=== PATIENT | female | born 1945 | race Caucasian/White ===

== ENCOUNTER → 2019-11-07 | Outpatient (CLI) | payer BC, MEDICARE ==
--- NOTE | 2019-11-10 16:42 | RAD ---
BILATERAL SCREENING MAMMOGRAM, 3-D History: Routine screening. Comparison: 10/22/2017, 08/21/2014. Technique: MLO and CC digital tomosynthesis (3D) images obtained. Radiologist reviewed these images on dedicated workstation. Findings: Breast Tissue Density B : There are scattered areas of fibroglandular density. There are no dominant masses, suspicious microcalcifications, or architectural distortion. IMPRESSION: No mammographic evidence of malignancy. Recommend routine screening. BI-RADS category 1: Negative. The images were reviewed with computer-aided detection. Patient information is entered into reminder system with a target due date for the next screening mammogram. Mammography is the most sensitive method for finding small breast cancers, but it does not detect them all and is not a substitute for careful clinical examination. A negative mammogram does not negate a clinically suspicious finding and should not result in delay in biopsying a clinically suspicious abnormality. "Our facility is accredited by the [employer] Mammography Program." Electronically signed by: Wesley Simpson MD (11/10/2019 4:39 PM) [email or web address]
== END ==
LOC: MAMMO 08:34
PROVIDERS: ATTEND Specialist
DX: Z12.31 Encounter for screening mammogram for malignant neoplasm of breast (principal)
CPT/HCPCS: 77063; 77067

== ENCOUNTER → 2020-01-26 | Outpatient (CLI) | payer BC, MEDICARE ==
--- NOTE | 2020-01-26 17:13 | RAD ---
XR KNEE _3 VIEWS_LT 01/26/2020 10:52 AM INDICATION: Chronic knee pain, worsening COMPARISON: None available. TECHNIQUE: 3 views of the left knee are provided. FINDINGS/ IMPRESSION: There may be a subtle knee joint effusion. There is no acute fracture or dislocation. Joint spaces ar e maintained. Bone mineralization is within normal limits. Regional soft tissues are within normal li mits. There is no soft tissue gas or osseous erosion. No radiopaque foreign body. Electronically signed by: Donna Ding MD (01/26/2020 5:11 PM) KALE
== END ==
LOC: DXRAD 10:38
PROVIDERS: ATTEND Physician Assistant
DX: M25.462 Effusion, left knee (principal); G89.29 Other chronic pain
CPT/HCPCS: 73562

== ENCOUNTER → 2020-05-13 | Outpatient (CLI) | payer BC, MEDICARE ==
--- NOTE | 2020-05-14 09:12 | RAD ---
PQRS Compliance Statement: One or more of the following individualized dose reduction techniques were utilized for this examinat ion: 1. Automated exposure control 2. Adjustment of the mA and/or kV according to patient size 3. Use of iterative reconstruction technique CT ORBITS/SELLA WITHOUT CONTRAST 05/13/2020 3:32 PM Indication: Exophthalmos COMPARISON: None available. TECHNIQUE: Multiple axial CT images of the orbits were obtained without intravenous contrast. Coronal sagittal reformats are provided. FINDINGS: Globes are spherical and contour. There is proptosis of the left orbit with the posterior margin the globe at the level of the interzygomatic line. Bilateral lens replacement is noted. There is enlargem ent of the inferior medial, superior and lateral rectus muscles of the left orbit. Minimal fat strand ing identified within the intraconal fat. Right orbit is normal in appearance. Mild mucosal thickening of the maxillary sinuses, posterior left ethmoid air cells and right sphenoid sinus. Mastoid air cells are well aerated. Skull base is intact. Versus portions of the posterior fo ssa and brain parenchyma appear normal. IMPRESSION: 1. Left-sided exophthalmus with enlargement of the extraocular muscles suspicious for thyroid ophthal mopathy. Correlate with any pain as consideration may be given for pseudotumor. Diffuse involvement o f the extraocular muscles is atypical for neoplastic processes. IgG4 related disease could have simil ar appearance. Electronically signed by: Donna Ding MD (05/14/2020 9:10 AM) [id number]
== END ==
LOC: CT 15:25
PROVIDERS: ATTEND Ophthalmology Ophthalmic Plastic and Reconstructive Surgery
DX: H53.2 Diplopia (principal); Q15.8 Other specified congenital malformations of eye
CPT/HCPCS: 70480

== ENCOUNTER → 2020-11-07 | Outpatient (CLI) | payer BC, MEDICARE ==
--- NOTE | 2020-11-07 15:45 | RAD ---
MG BILAT SCREEN+PARISH 11/07/2020 2:29 PM INDICATION: Asymptomatic screening mammogram. COMPARISON: 11/07/2019, 10/22/2017 TECHNIQUE: 3D tomosynthesis was performed in CC and MLO projections. 2D views were obtained from the 3D data. CAD was utilized as needed. FINDINGS: Breast density: Category B: There are scattered areas of fibroglandular density. Right breast: Focal asymmetry in the retroareolar right breast appears new. Further evaluation with s pot compression CC and MLO views of the right breast in the retroareolar region as well as possible u ltrasound is recommended. Left breast: There are no suspicious microcalcifications, masses or areas of architectural distortion . IMPRESSION: 1. Incomplete right mammogram. Additional imaging is recommended. 2. Negative left mammogram. BI-RADS category: 0; Incomplete Recommendations: Recommend additional imaging for which the patient will need to be called back. Electronically signed by: Donna Ding MD (11/07/2020 3:42 PM) [id number]
== END ==
LOC: MAMMO 14:21
PROVIDERS: ATTEND Specialist
DX: Z12.31 Encounter for screening mammogram for malignant neoplasm of breast (principal)
CPT/HCPCS: 77063; 77067

== ENCOUNTER → 2020-12-02 | Outpatient (CLI) | payer BC, MEDICARE ==
--- NOTE | 2020-12-02 15:14 | RAD ---
PROCEDURE: US BREAST RT, MG DIAGNOSTICUNILAT MAMMO HISTORY: The patient is 75 years old and is seen for Reason: CALLBACK ABNORMAL MAMM RT BREAST / Spl. Instructions: / History: . COMPARISON: November 07, 2020 TECHNIQUE: Right breast spot compression views and ML view. Ultrasound was also performed of the righ t breast. DENSITY: There are scattered fibroglandular densities. FINDINGS: Mammogram: Previously seen now focal asymmetry within the right retroareolar breast is less apparent on spot compression views. Scattered benign-appearing calcifications. ULTRASOUND: Small cystic lesion within the right breast retroareolar measures 0.3 x 0.4 cm correspond ing with mammographic finding. IMPRESSION: 1. Small cystic lesion within the right breast corresponding with mammographic finding. Recommend re turn to annual screening. Recommend annual screening mammograms per [employer] [place] [employer] guidelines. She will be due in one year. BI-RADS category 2 Benign Patient entered into a reminder system for annual screening mammogram. Electronically signed by: Brodie Kaur DO (12/02/2020 3:12 PM) [id number]
== END ==
LOC: MAMMO 13:59
PROVIDERS: ATTEND Specialist
DX: N60.11 Diffuse cystic mastopathy of right breast (principal); R92.2 Inconclusive mammogram
CPT/HCPCS: 76641; 77065

== ENCOUNTER 2020-12-20 11:47 | Emergency (ER) | payer BC, MEDICARE ==
[~2020-12-20] VITALS: Ht 165.1 cm; Wt 59.0 kg
--- NOTE | 2020-12-20 13:04 | EKG ---
[address] [address] Test Date: 2020-12-20 Test Time: 12:36:44 Pat Name: REBECCA HART Department: Room: Gender: F Intensive Care Nurse: BRAYDEN : 1945 Requested By: LAURA ANN Order Number: [id number] Reading MD: Jose Luis Joy Measurements Intervals [place] Rate: 66 P: ID: QRS: 58 QRSD: 94 T: 34 QT: 436 QTc: 459 Interpretive Statements ATRIAL FIBRILLATION RI6.02 No previous ECG available for comparison Electronically Signed On 12-23-2020 9:37:30 EGGS INSPECTOR by Jose Luis Joy
[2020-12-20 13:10] LABS: BASO % 1 % (0-3); EOS % 0 % (0-3); HEMATOCRIT 40.2 % (36.0-47.0); HEMOGLOBIN 13.8 g/dL (12.0-15.5); LYMPH # 1.5 x10^3/uL (1.0-4.8); LYMPH % 21 % (24-48); MEAN CORPUSCULAR HEMOGLOBIN 31 pg (25-35); MEAN CORPUSCULAR HGB CONC 34 g/dL (31-37); MEAN CORPUSCULAR VOLUME 91 fL (79-100); MONO # 0.7 x10^3/uL (0.0-1.1); MONO % 10 % (0-9); NEUT # 4.9 x10^3uL (1.8-7.7); NEUT % 69 % (31-73); PLATELET COUNT 247 x10^3/uL (140-400); RED BLOOD COUNT 4.44 x10^6/uL (3.50-5.40); RED CELL DISTRIBUTION WIDTH 12.7 % (11.5-14.5); WHITE BLOOD COUNT 7.2 x10^3/uL (4.0-11.0)
--- NOTE | 2020-12-20 13:11 | RAD ---
EXAM: CT head without contrast INDICATION: Memory problems COMPARISON: None TECHNIQUE: Axial CT imaging through the head without intravenous contrast. One or more of the following individualized dose reduction techniques were utilized for this examinat ion: 1. Automated exposure control 2. Adjustment of the mA and/or kV according to patient size 3. Use of iterative reconstruction technique. FINDINGS: Ventricles and sulci are moderately enlarged. There is a cavus septum pellucidum. There is moderate c onfluent deep white matter hypoattenuation in the frontal and parietal lobes, greater on the right. N o intracranial hemorrhage or acute infarct. Basal cisterns are clear. No acute osseous abnormality. P aranasal sinuses and mastoid air cells are clear. Globes and orbits are intact. IMPRESSION: 1. Moderate cerebral volume loss. 2. Moderate white matter disease, nonspecific but likely related to chronic microvascular ischemia. Electronically signed by: Yahaira Berrios MD (12/20/2020 1:08 PM) [id number]
[2020-12-20 13:17] LABS: CALCIUM 9.8 mg/dL (8.5-10.1); GFR 53.8; POTASSIUM 3.7 mmol/L (3.5-5.1)
[2020-12-20 13:17] LABS: BACTERIA,URINE FEW /HPF (0-FEW); BILIRUBIN,URINE NEG (NEG); CLARITY,URINE CLEAR; COLOR,URINE YELLOW; GLUCOSE,URINE NEG (NEG); NITRITE,URINE NEG (NEG); RBC,URINE OCC /HPF (0-2); SQUAMOUS EPITHELIAL CELL,UR FEW /LPF; UROBILINOGEN,URINE 0.2 mg/dL (0.2 mg/dL); WBC,URINE OCC /HPF (0-4)
[2020-12-20 13:23] LABS: ALBUMIN 4.1 g/dL (3.4-5.0); ALBUMIN/GLOBULIN RATIO 1.4 (1.0-1.7); MAGNESIUM 1.9 mg/dL (1.8-2.4); TOTAL BILIRUBIN 1.3 mg/dL (0.2-1.0)
--- NOTE | 2020-12-20 13:37 | PHYS DOC ---
Past History Past Medical History: High Cholesterol, Hypertension, Hyperthyroid Additional Past Medical Histor: Grave's Disease (LAURA ANN) General Adult EDM: Chief Complaint: ALTERED MENTAL STATUS HPI: HPI: Patient is a 75 year old female who presents with fatigue and memory issues. Patient's is at bedside and helps in providing history. 5 days ago, patient had an episode of acute altered mental status. 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 She left work between 2 and 230 on Wednesday for an appointment at her doctor's office, which she visits frequently. Reportedly, she got lost and was not in contact with her until 8:00 that evening. She had pulled over in a parking lot and was having difficulty operating her car and her cell phone. A good Denominational helped her to contact her . Patient's reports that she has had some changes in "thought process" for the past 2 weeks. Patient reports she has felt fatigue for much longer than that, a period of months. Patient just finished a course of [place] a to treat ophthalmic manifestations of Graves' disease. This medication was administered a total of 8 times every 3 weeks. A known side effect of this medication is delirium and disorientation. Patient and her states that her symptoms seem to be related to the medication administration. Patient contacted her PCP this morning, who advised evaluation in the emergency department to rule out other etiologies. They have no other complaints at this time. (LAURA ANN) Review of Systems: Review of Systems: Constitutional: See HPI Eyes: Denies change in visual acuity or visual field deficits Respiratory: Denies cough or shortness of breath Cardiovascular: Denies chest pain or edema GI: Denies abdominal pain, nausea, vomiting, bloody stools or diarrhea : Denies dysuria or hematuria Musculoskeletal: Denies back pain or joint pain Integument: Denies rash or other skin lesions Neurologic: See HPI Endocrine: Denies polyuria or polydipsia Psychiatric: Denies depression or anxiety (LAURA ANN) Physical Exam: PE: Constitutional: Thin, well groomed, no acute distress, non-toxic appearance. HENT: Normocephalic, atraumatic, bilateral external ears normal, oropharynx moist, no oral exudates, nose normal. Eyes: PERRLA, EOMI, conjunctiva normal, no discharge. Neck: Normal range of motion, no tenderness, supple, no goiter, no bruits, no stridor. Cardiovascular: Heart rate regular, no murmur. Lungs & Thorax: Bilateral breath sounds clear to auscultation. Abdomen: Bowel sounds normal, soft, no tenderness, no masses, no pulsatile masses. Skin: Warm, dry, no erythema, no rash. Back: No step-offs, no tenderness, no CVA tenderness. Extremities: No tenderness, no cyanosis, no clubbing, ROM intact, no edema. Neurologic: Alert and oriented x3, normal motor function, normal sensory f unction, no focal deficits noted. Psychologic: Affect calm and pleasant, good judgment. (LAURA ANN) Current Patient Data: Labs: Laboratory Tests Test 12/20/20 12:50 12/20/20 12:56 Urine Collection Type Clean catch Urine Color Yellow Urine Clarity Clear Urine pH 7.0 Urine Specific [place] 1.015 Urine Protein Neg (NEG-TRACE) Urine Glucose (UA) Neg mg/dL (NEG) Urine Ketones (Stick) Neg mg/dL (NEG) Urine Blood Trace (NEG) Urine Nitrite Neg (NEG) Urine Bilirubin Neg (NEG) Urine Urobilinogen Dipstick 0.2 mg/dL (0.2 mg/dL) Urine Leukocyte Esterase Neg (NEG) Urine RBC Occ /HPF (0-2) Urine WBC Occ /HPF (0-4) Urine Squamous Epithelial Cells Few /LPF Urine Bacteria Few /HPF (0-FEW) White Blood Count 7.2 x10^3/uL (4.0-11.0) Red Blood Count 4.44 x10^6/uL (3.50-5.40) Hemoglobin 13.8 g/dL (12.0-15.5) Hematocrit 40.2 % (36.0-47.0) Mean Corpuscular Volume 91 fL (79-100) Mean Corpuscular Hemoglobin 31 pg (25-35) Mean Corpuscular Hemoglobin Concent 34 g/dL (31-37) Red Cell Distribution Width 12.7 % (11.5-14.5) Platelet Count 247 x10^3/uL (140-400) Neutrophils (%) (Auto) 69 % (31-73) Lymphocytes (%) (Auto) 21 % (24-48) L Monocytes (%) (Auto) 10 % (0-9) H Eosinophils (%) (Auto) 0 % (0-3) Basophils (%) (Auto) 1 % (0-3) Neutrophils # (Auto) 4.9 x10^3uL (1.8-7.7) Lymphocytes # (Auto) 1.5 x10^3/uL (1.0-4.8) Monocytes # (Auto) 0.7 x10^3/uL (0.0-1.1) Eosinophils # (Auto) 0.0 x10^3/uL (0.0-0.7) Basophils # (Auto) 0.0 x10^3/uL (0.0-0.2) Sodium Level 132 mmol/L (136-145) L Potassium Level 3.7 mmol/L (3.5-5.1) Chloride Level 94 mmol/L (98-107) L Carbon Dioxide Level 30 mmol/L (21-32) Anion Gap 8 (6-14) Blood Urea Nitrogen 14 mg/dL (7-20) Creatinine 1.0 mg/dL (0.6-1.0) Estimated GFR (Cockcroft-Gault) 53.8 BUN/Creatinine Ratio 14 (6-20) Glucose Level 127 mg/dL (70-99) H Calcium Level 9.8 mg/dL (8.5-10.1) Magnesium Level 1.9 mg/dL (1.8-2.4) Total Bilirubin 1.3 mg/dL (0.2-1.0) H Aspartate Amino Transferase (AST) 25 U/L (15-37) Alanine Aminotransferase (ALT) 24 U/L (14-59) Alkaline Phosphatase 48 U/L (46-116) Total Protein 7.0 g/dL (6.4-8.2) Albumin 4.1 g/dL (3.4-5.0) Albumin/Globulin Ratio 1.4 (1.0-1.7) Vital Signs: VS - Last 72 Hours, by Label Date Time Temp Pulse Resp B/P (MAP) Pulse Ox O2 Delivery O2 Flow Rate FiO2 12/20/20 13:38 97.6 86 16 149/67 (94) 99 Room Air (LAURA ANN) EKG: EKG: EKG Interpreted by Dr. Keith at 1241: Irregularly irregular rhythm without discernible P waves with controlled ventricular rate [address]-T wave changes. (LAURA ANN) Radiology/Procedures: Radiology/Procedures: PROCEDURE: CT HEAD WO CONTRAST EXAM: CT head without contrast INDICATION: Memory problems COMPARISON: None TECHNIQUE: Axial CT imaging through the head without intravenous contrast. One or more of the following individualized dose reduction techniques were utilized for this examination: 1. Automated exposure control 2. Adjustment of the mA and/or kV according to patient size 3. Use of iterative reconstruction technique. FINDINGS: Ventricles and sulci are moderately enlarged. There is a cavus septum pellucidum. There is moderate confluent deep white matter hypoattenuation in the frontal and parietal lobes, greater on the right. No intracranial hemorrhage or acute infarct. Basal cisterns are clear. No acute osseous abnormality. Paranasal sinuses and mastoid air cells are clear. Globes and orbits are intact. IMPRESSION: 1. Moderate cerebral volume loss. 2. Moderate white matter disease, nonspecific but likely related to chronic microvascular ischemia. Electronically signed by: Yahaira Berrios MD (12/20/2020 1:08 PM) [id number] (LAURA ANN) Heart Score: C/O Chest Pain: No (LAURA ANN) Course & Med Decision Making: Course & Med Decision Making Pertinent Labs and Imaging studies reviewed. (See chart for details) Patient presentation concerning for dementia versus delirium. Work-up will include lab work, urinalysis, EKG, CT head plain. Work-up today reveals new onset atrial fibrillation. Otherwise, imaging, labs and urinalysis are unremarkable. Spoke with nurse practitioner for cardiology service, who recommended initiation of a low-dose beta-david and baby aspirin. I also spoke to Dr. Walker, who will see the patient this afternoon. Patient instructed to follow-up with cardiology service next week. Patient and understand and are agreeable to discharge plan. (LAURA ANN) Course & Med Decision Making I was the Attending physician on the above date of service of this patient. This patient was evaluated, examined, treated, and dispositioned from the emergency department by the mid-level practitioner. Although I was working at the time , no assistance was requested. Electronically signed, Mimi Keith DO (MIMI KEITH DO) Prateek Disclaimer: Prateek Disclaimer: This electronic medical record was generated, in whole or in part, using a voice recognition dictation system. (LAURA ANN) Departure Departure: Impression: Primary Impression: Drug-induced delirium Additional Impression: Atrial fibrillation with controlled ventricular rate Disposition: HOME / SELF CARE / HOMELESS Condition: STABLE Referrals: NATALY WALKER MD (PCP) Patient Instructions: Atrial Fibrillation, [id number] Additional Instructions: As discussed, the only pertinent abnormal finding in your work-up today was new onset atrial fibrillation. Cardiology and your primary care provider are both aware and prepared to follow-up with you. You were started today on metoprolol and baby aspirin. Please keep your appointment with Dr. Walker this afternoon, and you may follow-up with cardiology next week. Please return to the emergency department if you have any new symptoms. Scripts Metoprolol Succinate (TOPROL XL) 25 Mg Tab.er.24h 1 TAB PO DAILY for atrial fibrillation for 30 Days, #30 TAB 2 Refills Prov: LAURA ANN 12/20/20 LAURA ANN Dec 20, 2020 13:37 MIMI KEITH DO Dec 21, 2020 06:20
[2020-12-20] MEDS ORDERED: ASPIRIN ENTERIC COATED 81 MG TABLET.DR. PO ONE (13:45)
[2020-12-20] MEDS ORDERED: METOPROLOL SUCC 24HR ER 25 MG TAB.ER.24H. PO ONE (13:45)
[2020-12-20 14:08] VITALS: BP 141/57
[2020-12-20] MEDS ORDERED: METO25TA2 PO (14:34)
== END 2020-12-20 14:09 | disposition home or self-care (01) ==
LOC: ER 11:47
DX: F19.921 Other psychoactive substance use, unspecified with intoxication with delirium (principal); I48.20 Chronic atrial fibrillation, unspecified; E78.00 Pure hypercholesterolemia, unspecified; I10 Essential (primary) hypertension; E05.90 Thyrotoxicosis, unspecified without thyrotoxic crisis or storm
CPT/HCPCS: 36415; 70450; 80053; 81001; 83735; 84484; 85025; 93005; 99285